=== PATIENT | female | born 2000 | race Two or more races ===

== ENCOUNTER 2024-02-18 09:56 | Emergency (ER) | payer MEDICAID ==
[~2024-02-18] VITALS: Ht 147.3 cm; Wt 66.0 kg
[2024-02-18 10:07] VITALS: TEMP 98.6; O2SAT 98
[2024-02-18 10:30] VITALS: BP 117/80; PULSE 95; RESP 16
[2024-02-18] MEDS: OXYCODONE HCL/ACETAMINOPHEN 5/325MG TABLET PO ONE (10:30)
[2024-02-18] MEDS ORDERED: IBUP-2028 PO (11:18)
[2024-02-18] MEDS ORDERED: T3 PO (11:18)
== END 2024-02-18 12:53 | disposition home or self-care (01) ==
LOC: ER 09:56
DX: M25.511 Pain in right shoulder (principal); Z91.018 Allergy to other foods; Z79.1 Long term (current) use of non-steroidal anti-inflammatories (NSAID)
CPT/HCPCS: 73030; 99283